=== PATIENT | male | born 1955 | race African-American/Black ===

== ENCOUNTER 2017-04-17 19:06 | Inpatient (IN) ==
[2017-04-17] MEDS ORDERED: methylPREDNISolone SOD SUC 125 MG/2 ML VIAL IV STA (19:42)
[2017-04-17] MEDS ORDERED: FUROSEMIDE 100 MG/10 ML VIAL IV STA (19:42)
[2017-04-17] MEDS ORDERED: ASPIRIN 325 MG TABLET PO STA (19:42)
[2017-04-17] MEDS ORDERED: ONDANSETRON 4 MG/2 ML VIAL IV STA (19:42)
[2017-04-17] MEDS ORDERED: ALBUTEROL 2.5 MG/3 ML NEB RESP TX SCH (20:00)
[2017-04-17 20:31] LABS: Basophils # 0.1 10*3/uL (0.0-0.2); Basophils % 1.3 % (0.0-0.8); Eosinophils # 0.1 10*3/uL (0.0-0.87); Eosinophils % 1.1 % (0.00-10.9); Immature Granulocytes % 0.2 %; Immature Granulocytes Absolute 0.01 #; Lymphocytes # 1.1 10*3/uL (1.4-4.0); Lymphocytes % 19.6 % (21.2-54.2); Mean Corpuscular HGB Conc 31.4 GM/DL (32-36); Mean Corpuscular Hemoglobin 28 PG (27-34); Mean Corpuscular Volume 89.3 FL (87-102); Mean Platelet Volume 12.3 FL (9.6-12.0); Monocytes # 0.6 10*3/uL (0.11-0.8); Monocytes % 11.9 % (1.7-12.7); Neutrophils # 3.6 10*3/uL (1.4-7.4); Neutrophils % 65.9 % (38.7-73.9); Platelet Count 196 T/CUMM (130-400); Red Blood Count 3.92 MC/CUMM (3.8-5.5); Red Cell Distribution Width 19.5 % (9.3-17.3); White Blood Count 5.4 T/CUMM (4-12)
[2017-04-17 20:40] LABS: INR 1.3; PT Patient Result 13.1 SECS
[2017-04-17] MEDS ORDERED: ASPIRIN 325 MG TABLET ONE (20:43)
[2017-04-17] MEDS ORDERED: FUROSEMIDE 40 MG/4 ML VIAL ONE (20:43)
[2017-04-17] MEDS ORDERED: FUROSEMIDE 20 MG/2 ML VIAL ONE (20:43)
[2017-04-17] MEDS ORDERED: methylPREDNISolone SOD SUC 125 MG/2 ML VIAL ONE (20:43)
[2017-04-17] MEDS ORDERED: ONDANSETRON 4 MG/2 ML VIAL ONE (20:43)
[2017-04-17] MEDS ORDERED: FUROSEMIDE 100 MG/10 ML VIAL ONE (20:45)
[2017-04-17 21:01] LABS: Bilirubin,Total 2.7 MG/DL (0.2-1.0); Calcium 8.4 MG/DL (8.5-10.1); Magnesium 2.3 MG/DL (1.8-2.4); Osmolality,Calculated 275.5 MOS/KG (273-304); Potassium 3.9 MMOL/L (3.5-5.1); Total Protein 7.1 G/DL (6.4-8.3); Troponin I Only 0.04 NG/ML (0.00-0.045)
[2017-04-17 21:37] LABS: Barbiturates Screen,Urine Negative (Negative); Benzodiazepines Screen,Urine Negative (Negative); Cannabinoid Screen,Urine Negative (Negative); Opiate Screen,Urine Negative (Negative); Phencyclidine Screen,Urine Negative (Negative)
[2017-04-17 21:39] LABS: Amorphous Crystals,Urine Occasional /HPF (Few); Apearance,Urine Slightly Hazy (Clear); Bacteria,Urine Occasional /HPF (Few); Bilirubin,Urine Negative (Negative); Blood, Urine Small mg/dL (Negative); Calcium Oxalate Crystals,Urine Few /HPF (Few); Glucose,Urine (UA) Negative (Negative); Granular Casts,Urine 1 /LPF (0-1); Hyaline Casts,Urine 8 /LPF (0-3); Ketones,Urine Negative (Negative); Mucus,Urine Few /LPF (Occasional); Nitrite,Urine Negative (Negative); Protein,Urine 100 MG/DL; RBC,Urine 11 /HPF (0-4); Urine Color Amber (Yellow); Urine Specific Gravity 1.023 (1.001-1.035); WBC,Urine 3 /HPF (0-6)
[2017-04-18] MEDS ORDERED: ONDANSETRON 4 MG/2 ML VIAL IV PRN (01:37)
[2017-04-18 04:13] LABS: Basophils % 0.2 % (0.0-0.8); Hematocrit 33.7 VOL% (42.0-52.0); Hemoglobin 10.6 GM/DL (14.0-18.0); Immature Granulocytes % 0.4 %; Immature Granulocytes Absolute 0.02 #; Lymphocytes # 0.4 10*3/uL (1.4-4.0); Mean Corpuscular HGB Conc 31.5 GM/DL (32-36); Mean Corpuscular Hemoglobin 28 PG (27-34); Mean Corpuscular Volume 88.9 FL (87-102); Mean Platelet Volume 12.3 FL (9.6-12.0); Monocytes # 0.1 10*3/uL (0.11-0.8); Monocytes % 2.5 % (1.7-12.7); Neutrophils # 4.2 10*3/uL (1.4-7.4); Neutrophils % 88.9 % (38.7-73.9); Platelet Count 191 T/CUMM (130-400); Red Blood Count 3.79 MC/CUMM (3.8-5.5); Red Cell Distribution Width 18.9 % (9.3-17.3); White Blood Count 4.8 T/CUMM (4-12)
[2017-04-18 04:51] LABS: Bilirubin,Total 2.2 MG/DL (0.2-1.0); Osmolality,Calculated 280.4 MOS/KG (273-304); Potassium 3.9 MMOL/L (3.5-5.1); Total Protein 6.8 G/DL (6.4-8.3)
[2017-04-18 05:45] LABS: Hepatitis A Ab IgM Quant 0.16 Index; Hepatitis A Ab IgM Result Negative (Negative); Hepatitis B Core IgM Result Negative (Negative); Hepatitis B Surface Ag Quant 0.25 Index; Hepatitis B Surface Ag Result Negative (Negative); Hepatitis C Virus Ab Quant 0.17 Index; Hepatitis C Virus Ab Result Negative (Negative)
[2017-04-18] MEDS ORDERED: FUROSEMIDE 40 MG/4 ML VIAL ONE (08:48)
[2017-04-18] MEDS ORDERED: LISINOPRIL 10 MG TABLET ONE (08:48)
[2017-04-18] MEDS ORDERED: SOTALOL 80 MG TABLET ONE (08:48)
[2017-04-18] MEDS ORDERED: CARVEDILOL 3.125 MG TABLET ONE (08:48)
[2017-04-18] MEDS ORDERED: ENOXAPARIN 40 MG/0.4 ML SYRINGE ONE (08:48)
[2017-04-18] MEDS ORDERED: ASPIRIN CHEW 81 MG TABLET PO ONE (08:49)
[2017-04-18] MEDS ORDERED: PANTOPRAZOLE 40 MG TABLET PO ONE (08:49)
[2017-04-18] MEDS: FUROSEMIDE 40 MG/4 ML VIAL IV SCH ×2 (09:08→17:09)
[2017-04-18] MEDS: ASPIRIN CHEW 81 MG TABLET PO SCH (09:08)
[2017-04-18] MEDS: SOTALOL 80 MG TABLET PO SCH ×2 (09:08→21:59)
[2017-04-18] MEDS: ENOXAPARIN 40 MG/0.4 ML SYRINGE SUBCUT SCH (09:08)
[2017-04-18] MEDS: PANTOPRAZOLE 40 MG TABLET PO SCH (09:09)
[2017-04-18] MEDS: LISINOPRIL 5 MG TABLET PO SCH (09:09)
[2017-04-18] MEDS: CARVEDILOL 3.125 MG TABLET PO SCH ×2 (09:09→21:58)
[2017-04-18] MEDS: SPIRONOLACTONE 25 MG TABLET PO SCH (11:55)
[2017-04-18] MEDS: CYANOCOBALAMIN 500 MCG TABLET PO SCH (11:55)
[2017-04-19] MEDS: ENOXAPARIN 40 MG/0.4 ML SYRINGE SUBCUT SCH (06:27)
[2017-04-19] MEDS: FUROSEMIDE 40 MG/4 ML VIAL IV SCH ×2 (08:54→15:17)
[2017-04-19] MEDS: CARVEDILOL 3.125 MG TABLET PO SCH (08:55)
[2017-04-19] MEDS: PANTOPRAZOLE 40 MG TABLET PO SCH (08:55)
[2017-04-19] MEDS: CYANOCOBALAMIN 500 MCG TABLET PO SCH (08:55)
[2017-04-19] MEDS: SOTALOL 80 MG TABLET PO SCH (08:55)
[2017-04-19] MEDS: LISINOPRIL 5 MG TABLET PO SCH (08:56)
[2017-04-19] MEDS: ASPIRIN CHEW 81 MG TABLET PO SCH (08:56)
[2017-04-19] MEDS: SPIRONOLACTONE 25 MG TABLET PO SCH (08:56)
[2017-04-19] MEDS ORDERED: AMIODARONE INJ 150 MG in DEXTROSE 5% 100 ML IV ONE (14:57)
[2017-04-19] MEDS ORDERED: AMIODARONE INJ 450 MG in DEXTROSE 5% 241 ML IV SCH (15:00)
[2017-04-19] MEDS: ALBUTEROL/IPRATROPIUM 3 ML NEB RESP TX PRN ×2 (16:20→23:45)
[2017-04-19] MEDS: RIVAROXABAN 20 MG TABLET PO SCH (17:57)
[2017-04-19] MEDS: AMIODARONE INJ 450 MG in DEXTROSE 5% 241 ML IV SCH (21:58)
[2017-04-19] MEDS ORDERED: FUROSEMIDE 40 MG/4 ML VIAL IV ONE (23:45)
[2017-04-20] MEDS: AMIODARONE INJ 450 MG in DEXTROSE 5% 241 ML IV SCH ×2 (02:27→14:24)
[2017-04-20 03:31] LABS: Basophils % 0.4 % (0.0-0.8); Hematocrit 36.3 VOL% (42.0-52.0); Hemoglobin 11.8 GM/DL (14.0-18.0); Immature Granulocytes Absolute 0.07 #; Lymphocytes # 0.6 10*3/uL (1.4-4.0); Lymphocytes % 9.3 % (21.2-54.2); Mean Corpuscular HGB Conc 32.5 GM/DL (32-36); Mean Corpuscular Hemoglobin 29 PG (27-34); Mean Corpuscular Volume 88.3 FL (87-102); Mean Platelet Volume 13.1 FL (9.6-12.0); Monocytes # 1.1 10*3/uL (0.11-0.8); Monocytes % 16.1 % (1.7-12.7); Neutrophils % 73.2 % (38.7-73.9); Platelet Count 203 T/CUMM (130-400); Red Blood Count 4.11 MC/CUMM (3.8-5.5); Red Cell Distribution Width 19.3 % (9.3-17.3); White Blood Count 6.8 T/CUMM (4-12)
[2017-04-20 04:11] LABS: Albumin 3.1 G/DL (3.4-5.0); Bilirubin,Total 1.9 MG/DL (0.2-1.0); Calcium 8.5 MG/DL (8.5-10.1); Osmolality,Calculated 284.4 MOS/KG (273-304)
[2017-04-20 04:28] LABS: Giant Platelets Few; Hypochromasia 1+; Lymphocytes 14 % (20-55); Ovalocytes Slight; Platelet Estimate Adequate; Segmented Neutrophils 71 % (50-85); Total Cells Counted 100
[2017-04-20] MEDS: ALBUTEROL/IPRATROPIUM 3 ML NEB RESP TX PRN (06:01)
[2017-04-20] MEDS: ENOXAPARIN 40 MG/0.4 ML SYRINGE SUBCUT SCH (06:15)
[2017-04-20] MEDS: PANTOPRAZOLE 40 MG TABLET PO SCH (08:27)
[2017-04-20] MEDS: CYANOCOBALAMIN 500 MCG TABLET PO SCH (08:27)
[2017-04-20] MEDS: ASPIRIN CHEW 81 MG TABLET PO SCH (08:27)
[2017-04-20] MEDS: SPIRONOLACTONE 25 MG TABLET PO SCH (08:27)
[2017-04-20] MEDS: FUROSEMIDE 40 MG/4 ML VIAL IV SCH ×2 (08:27→17:25)
[2017-04-20] MEDS ORDERED: FUROSEMIDE 40 MG/4 ML VIAL IV ONE (11:49)
[2017-04-20] MEDS: LOSARTAN 50 MG TABLET PO SCH (14:18)
[2017-04-20] MEDS: METOPROLOL SUCCINATE XL 25 MG TABLET PO SCH (14:19)
[2017-04-20] MEDS ORDERED: guaiFENesin 200 MG/10 ML UDCUP PO PRN (17:17)
[2017-04-20] MEDS: RIVAROXABAN 20 MG TABLET PO SCH (17:32)
[2017-04-20] MEDS: guaiFENesin/CODEINE 5 ML LIQUID PO PRN (17:32)
[2017-04-20] MEDS: AMIODARONE 200 MG TABLET PO SCH (20:57)
[2017-04-21 05:48] LABS: Basophils % 0.1 % (0.0-0.8); Hematocrit 36.7 VOL% (42.0-52.0); Hemoglobin 11.9 GM/DL (14.0-18.0); Immature Granulocytes Absolute 0.08 #; Lymphocytes % 11.8 % (21.2-54.2); Mean Corpuscular HGB Conc 32.4 GM/DL (32-36); Mean Corpuscular Hemoglobin 28 PG (27-34); Mean Corpuscular Volume 86.6 FL (87-102); Mean Platelet Volume 13.2 FL (9.6-12.0); Monocytes # 1.4 10*3/uL (0.11-0.8); Monocytes % 17.4 % (1.7-12.7); Neutrophils # 5.8 10*3/uL (1.4-7.4); Neutrophils % 69.7 % (38.7-73.9); Platelet Count 194 T/CUMM (130-400); Red Blood Count 4.24 MC/CUMM (3.8-5.5); Red Cell Distribution Width 18.6 % (9.3-17.3); White Blood Count 8.3 T/CUMM (4-12)
[2017-04-21] MEDS: AMIODARONE INJ 450 MG in DEXTROSE 5% 241 ML IV SCH ×2 (06:05→20:10)
[2017-04-21 06:23] LABS: Band Neutrophils 1 % (0-10); Lymphocytes 5 % (20-55); Platelet Estimate Normal; Segmented Neutrophils 82 % (50-85); Total Cells Counted 100
[2017-04-21 06:29] LABS: Albumin 3.2 G/DL (3.4-5.0); Bilirubin,Total 2.8 MG/DL (0.2-1.0); Calcium 8.5 MG/DL (8.5-10.1); Osmolality,Calculated 282.8 MOS/KG (273-304); Potassium 4.1 MMOL/L (3.5-5.1); Total Protein 6.9 G/DL (6.4-8.3)
[2017-04-21] MEDS: LOSARTAN 50 MG TABLET PO SCH (08:25)
[2017-04-21] MEDS: PANTOPRAZOLE 40 MG TABLET PO SCH (08:26)
[2017-04-21] MEDS: CYANOCOBALAMIN 500 MCG TABLET PO SCH (08:26)
[2017-04-21] MEDS: METOPROLOL SUCCINATE XL 25 MG TABLET PO SCH (08:26)
[2017-04-21] MEDS: FUROSEMIDE 20 MG TABLET PO SCH ×2 (08:26→16:21)
[2017-04-21] MEDS: SPIRONOLACTONE 25 MG TABLET PO SCH (08:26)
[2017-04-21] MEDS: ASPIRIN CHEW 81 MG TABLET PO SCH (08:26)
[2017-04-21] MEDS: AMIODARONE 200 MG TABLET PO SCH (08:26)
[2017-04-21] MEDS: RIVAROXABAN 20 MG TABLET PO SCH (16:21)
[2017-04-22 05:36] LABS: Basophils % 0.1 % (0.0-0.8); Eosinophils % 0.1 % (0.00-10.9); Hematocrit 37.2 VOL% (42.0-52.0); Hemoglobin 12.1 GM/DL (14.0-18.0); Immature Granulocytes % 0.4 %; Immature Granulocytes Absolute 0.03 #; Lymphocytes # 0.8 10*3/uL (1.4-4.0); Lymphocytes % 11.4 % (21.2-54.2); Mean Corpuscular HGB Conc 32.5 GM/DL (32-36); Mean Corpuscular Hemoglobin 28 PG (27-34); Mean Corpuscular Volume 87.3 FL (87-102); Mean Platelet Volume 12.7 FL (9.6-12.0); Monocytes % 14.9 % (1.7-12.7); Neutrophils # 4.9 10*3/uL (1.4-7.4); Neutrophils % 73.1 % (38.7-73.9); Platelet Count 208 T/CUMM (130-400); Red Blood Count 4.26 MC/CUMM (3.8-5.5); Red Cell Distribution Width 18.5 % (9.3-17.3); White Blood Count 6.7 T/CUMM (4-12)
[2017-04-22 06:06] LABS: Magnesium 2.1 MG/DL (1.8-2.4); Osmolality,Calculated 285.8 MOS/KG (273-304); Potassium 3.9 MMOL/L (3.5-5.1)
[2017-04-22] MEDS: METOPROLOL SUCCINATE XL 25 MG TABLET PO SCH (08:37)
[2017-04-22] MEDS: SPIRONOLACTONE 25 MG TABLET PO SCH (08:37)
[2017-04-22] MEDS: LOSARTAN 50 MG TABLET PO SCH (08:37)
[2017-04-22] MEDS: CYANOCOBALAMIN 500 MCG TABLET PO SCH (08:38)
[2017-04-22] MEDS: PANTOPRAZOLE 40 MG TABLET PO SCH (08:38)
[2017-04-22] MEDS: FUROSEMIDE 20 MG TABLET PO SCH ×2 (08:38→16:21)
[2017-04-22] MEDS: ASPIRIN CHEW 81 MG TABLET PO SCH (08:38)
[2017-04-22] MEDS: AMIODARONE 200 MG TABLET PO SCH (08:38)
[2017-04-22] MEDS: AMIODARONE INJ 450 MG in DEXTROSE 5% 241 ML IV SCH (09:44)
[2017-04-22] MEDS: RIVAROXABAN 20 MG TABLET PO SCH (16:21)
[2017-04-23 03:26] LABS: Basophils % 0.2 % (0.0-0.8); Eosinophils % 0.3 % (0.00-10.9); Hematocrit 33.7 VOL% (42.0-52.0); Hemoglobin 11.3 GM/DL (14.0-18.0); Immature Granulocytes % 0.7 %; Immature Granulocytes Absolute 0.04 #; Lymphocytes # 0.7 10*3/uL (1.4-4.0); Lymphocytes % 11.7 % (21.2-54.2); Mean Corpuscular HGB Conc 33.5 GM/DL (32-36); Mean Corpuscular Hemoglobin 29 PG (27-34); Mean Platelet Volume 13.2 FL (9.6-12.0); Monocytes # 1.1 10*3/uL (0.11-0.8); Monocytes % 17.3 % (1.7-12.7); Neutrophils # 4.3 10*3/uL (1.4-7.4); Neutrophils % 69.8 % (38.7-73.9); Platelet Count 180 T/CUMM (130-400); Red Blood Count 3.92 MC/CUMM (3.8-5.5); Red Cell Distribution Width 18.2 % (9.3-17.3); White Blood Count 6.1 T/CUMM (4-12)
[2017-04-23 03:55] LABS: Calcium 7.6 MG/DL (8.5-10.1); Magnesium 2.3 MG/DL (1.8-2.4); Potassium 3.3 MMOL/L (3.5-5.1)
[2017-04-23 04:50] LABS: Band Neutrophils 3 % (0-10); Lymphocytes 31 % (20-55); Segmented Neutrophils 64 % (50-85); Total Cells Counted 100
[2017-04-23 04:51] LABS: Burr Cells 1+; Elliptocytes Few; Poikilocytosis 1+
[2017-04-23] MEDS: guaiFENesin/CODEINE 5 ML LIQUID PO PRN (06:20)
[2017-04-23] MEDS: CYANOCOBALAMIN 500 MCG TABLET PO SCH (08:45)
[2017-04-23] MEDS: AMIODARONE 200 MG TABLET PO SCH (08:46)
[2017-04-23] MEDS: PANTOPRAZOLE 40 MG TABLET PO SCH (08:46)
[2017-04-23] MEDS: METOPROLOL SUCCINATE XL 25 MG TABLET PO SCH (08:46)
[2017-04-23] MEDS: LOSARTAN 50 MG TABLET PO SCH (08:46)
[2017-04-23] MEDS: ASPIRIN CHEW 81 MG TABLET PO SCH (08:46)
[2017-04-23] MEDS: FUROSEMIDE 20 MG TABLET PO SCH (08:46)
[2017-04-23] MEDS: SPIRONOLACTONE 25 MG TABLET PO SCH (08:46)
[2017-04-23] MEDS ORDERED: POTASSIUM CHLORIDE 20 MEQ TABLET PO ONE (09:31)
[2017-04-23] MEDS: metOLazone 5 MG TABLET PO SCH (10:54)
[2017-04-23] MEDS: FUROSEMIDE 80 MG TABLET PO SCH (16:05)
[2017-04-23] MEDS: RIVAROXABAN 20 MG TABLET PO SCH (16:05)
[2017-04-24 06:10] LABS: Basophils % 0.5 % (0.0-0.8); Eosinophils % 0.2 % (0.00-10.9); Hematocrit 34.3 VOL% (42.0-52.0); Hemoglobin 11.5 GM/DL (14.0-18.0); Immature Granulocytes % 0.7 %; Immature Granulocytes Absolute 0.03 #; Lymphocytes # 0.9 10*3/uL (1.4-4.0); Lymphocytes % 20.2 % (21.2-54.2); Mean Corpuscular HGB Conc 33.5 GM/DL (32-36); Mean Corpuscular Hemoglobin 29 PG (27-34); Mean Corpuscular Volume 84.9 FL (87-102); Mean Platelet Volume 13.3 FL (9.6-12.0); Monocytes # 1.1 10*3/uL (0.11-0.8); Monocytes % 26.2 % (1.7-12.7); Neutrophils # 2.3 10*3/uL (1.4-7.4); Neutrophils % 52.2 % (38.7-73.9); Platelet Count 163 T/CUMM (130-400); Red Blood Count 4.04 MC/CUMM (3.8-5.5); Red Cell Distribution Width 18.2 % (9.3-17.3); White Blood Count 4.3 T/CUMM (4-12)
[2017-04-24 06:39] LABS: Calcium 8.1 MG/DL (8.5-10.1); Magnesium 2.1 MG/DL (1.8-2.4); Osmolality,Calculated 280.8 MOS/KG (273-304); Potassium 3.3 MMOL/L (3.5-5.1)
[2017-04-24 06:42] LABS: Band Neutrophils 2 % (0-10); Lymphocytes 19 % (20-55); Segmented Neutrophils 63 % (50-85); Total Cells Counted 100
[2017-04-24 06:43] LABS: Albumin 2.6 G/DL (3.4-5.0); Bilirubin,Total 1.5 MG/DL (0.2-1.0); Calcium 8.2 MG/DL (8.5-10.1); Hypochromasia 1+; Osmolality,Calculated 282.7 MOS/KG (273-304); Potassium 3.4 MMOL/L (3.5-5.1); Total Protein 6.1 G/DL (6.4-8.3)
[2017-04-24 06:47] LABS: Acanthocytes Few; Microcytosis 1+; Ovalocytes Few; Platelet Estimate Adequate; Tear Drop Cells Slight
[2017-04-24] MEDS: AMIODARONE 200 MG TABLET PO SCH (08:57)
[2017-04-24] MEDS: FUROSEMIDE 80 MG TABLET PO SCH ×2 (08:57→16:50)
[2017-04-24] MEDS: CYANOCOBALAMIN 500 MCG TABLET PO SCH (08:57)
[2017-04-24] MEDS: ASPIRIN CHEW 81 MG TABLET PO SCH (08:57)
[2017-04-24] MEDS: METOPROLOL SUCCINATE XL 25 MG TABLET PO SCH (08:57)
[2017-04-24] MEDS: metOLazone 5 MG TABLET PO SCH (08:57)
[2017-04-24] MEDS: LOSARTAN 50 MG TABLET PO SCH (08:57)
[2017-04-24] MEDS: PANTOPRAZOLE 40 MG TABLET PO SCH (08:57)
[2017-04-24] MEDS ORDERED: SPIRONOLACTONE 25 MG TABLET PO SCH (09:00)
[2017-04-24] MEDS: RIVAROXABAN 20 MG TABLET PO SCH (16:50)
[2017-04-24 16:51] VITALS: BP 97/57
== END 2017-04-24 17:23 | disposition home health service (06) | DRG 292 ==
LOC: EDUNIT# → EDBD → N.ED 19:06 → N.EDINP 23:21 → SUATTDRO 23:21 → N.TELES 04-18 16:02
PROVIDERS: ADMIT Internal Medicine; ATTEND Internal Medicine Infectious Disease